=== PATIENT | male | born 1935 | race Caucasian/White ===

== ENCOUNTER 2020-06-27 01:57 | Emergency (ER) | payer MEDICARE, MEDICAID ==
[~2020-06-27] VITALS: Ht 172.7 cm; Wt 105.0 kg
[2020-06-27 07:30] VITALS: BP 135/55
== END 2020-06-27 08:45 | disposition home or self-care (01) ==
LOC: ER 01:57
DX: R33.9 Retention of urine, unspecified (principal)
CPT/HCPCS: 51702; 93005; 99284